=== PATIENT | female | born 2000 | race Caucasian/White ===

== ENCOUNTER 2018-06-26 21:01 | Emergency (ER) | payer BC ==
[~2018-06-26] VITALS: Ht 160 cm; Wt 63.6 kg
[2018-06-26 21:16] VITALS: TEMP 97.7
[2018-06-26] MEDS ORDERED: ABILIFY5 MG PO (21:45)
[2018-06-26] MEDS ORDERED: WELLBUTRIN XL150 MG PO (21:45)
[2018-06-26] MEDS ORDERED: DUPIXENT300 MG/2 M SQ (22:32)
[2018-06-26] MEDS ORDERED: PREDNISONE20 MG PO (23:01)
[2018-06-26 23:26] VITALS: BP 118/71; PULSE 107
== END 2018-06-26 23:26 | disposition home or self-care (01) ==
LOC: COL.ER 21:01
DX: J06.9 Acute upper respiratory infection, unspecified (principal); J45.909 Unspecified asthma, uncomplicated; F32.9 Major depressive disorder, single episode, unspecified
CPT/HCPCS: J7512